=== PATIENT | male | born 1980 | race Caucasian/White ===

== ENCOUNTER 2020-06-11 15:35 | Emergency (ER) | payer BC ==
[~2020-06-11] VITALS: Ht 175.3 cm; Wt 137.6 kg
[~2020-06-11 15:35] MED LIST: HYDR1TAB PO; NO HOME MEDS; PENI500T2 PO
[2020-06-11 17:05] LABS: BASOPHILS # (AUTO) 0.1 X10'3 (0-0.2); BASOPHILS % (AUTO) 0.8 % (0-1); EOSINOPHILS # (AUTO) 0.1 X10'3 (0-0.9); EOSINOPHILS % (AUTO) 1.2 % (0-6); HEMATOCRIT 43.5 % (42.0-52.0); HEMOGLOBIN 14.6 g/dl (14.0-17.9); LYMPHOCYTES % (AUTO) 26.8 % (21-51); MEAN CORPUSCULAR HEMOGLOBIN 29.3 PG (27.0-31.0); MEAN CORPUSCULAR HGB CONC 33.6 g/dL (33.0-36.5); MEAN CORPUSCULAR VOLUME 87.2 FL (78-98); MEAN PLATELET VOLUME 7.5 FL (7.4-10.4); MONOCYTES # (AUTO) 0.7 X10'3 (0-0.9); MONOCYTES % (AUTO) 6.4 % (2-12); NEUTROPHILS # (AUTO) 7.3 X10'3 (1.8-7.7); NEUTROPHILS % (AUTO) 64.8 % (42-75); PLATELET COUNT 268 X10'3 (140-440); RED BLOOD COUNT 4.99 X10'6 (4.70-6.10); RED CELL DISTRIBUTION WIDTH 13.6 % (11.5-14.5); WHITE BLOOD COUNT 11.2 X10'3 (4.5-11.0)
[2020-06-11 17:10] LABS: ALANINE AMINOTRANSFERASE 44 U/L (12-78); ALBUMIN 3.7 G/DL (3.4-5.0); ALBUMIN/GLOBULIN RATIO 0.9 (1.1-1.5); ALKALINE PHOSPHATASE 73 IU/L (46-116); ANION GAP 11 (8-16); ASPARTATE AMINO TRANSFERASE 26 U/L (10-37); BILIRUBIN,TOTAL 0.6 MG/DL (0.1-1.0); BLOOD UREA NITROGEN 14 MG/DL (7-18); BUN/CREATININE RATIO 14.6 (5.4-32.0); CALCIUM 8.6 MG/DL (8.5-10.1); CHLORIDE 105 MMOL/L (99-107); CREATININE 0.96 MG/DL (0.60-1.10); GLUCOSE 96 MG/DL (70-104); SODIUM 141 MMOL/L (135-145); TOTAL CARBON DIOXIDE 24.8 MMOL/L (24-32); TOTAL PROTEIN 7.7 G/DL (6.4-8.2); eGFR 88 ML/MIN
[2020-06-11 17:26] VITALS: BP 151/94
[2020-06-11] MEDS ORDERED: MECL-231 PO (17:53)
== END 2020-06-11 17:58 | disposition home or self-care (01) ==
LOC: ER 15:35
DX: R42 Dizziness and giddiness (principal); R06.02 Shortness of breath; F17.200 Nicotine dependence, unspecified, uncomplicated; Z90.89 Acquired absence of other organs; Z72.89 Other problems related to lifestyle; Z79.2 Long term (current) use of antibiotics; Z79.899 Other long term (current) drug therapy
CPT/HCPCS: 36415; 71045; 80053; 83880; 84484; 85025; 93005; 99285

== ENCOUNTER 2021-05-28 22:59 | Emergency (ER) | payer BC ==
[~2021-05-28] VITALS: Ht 177.8 cm; Wt 118.2 kg
[~2021-05-28 22:59] MED LIST changes: +MECL-231 PO
[2021-05-28 23:10] VITALS: BP 134/87
== END 2021-05-29 00:41 | disposition left against medical advice (07) ==
LOC: ER 22:59
DX: R07.9 Chest pain, unspecified (principal); Z53.21 Procedure and treatment not carried out due to patient leaving prior to being seen by health care provider
CPT/HCPCS: 71045; 93005; 99283

== ENCOUNTER 2024-05-07 00:18 | Inpatient (IN) | payer BC, OTHER ==
[~2024-05-07] VITALS: Ht 177.8 cm; Wt 140.9 kg
[2024-05-07] MEDS: ondansetron 4mg rapidly disintigrating tab PO ONE (00:58)
[2024-05-07] MEDS: LIDOcaine 2% Viscous 15ml cup MM ONE (00:58)
[2024-05-07] MEDS: mag hydrox/Alum hydrox/simeth 30ml oral suspension PO ONE (00:58)
[2024-05-07 01:00] LABS: BASOPHILS % (AUTO) 0.3 % (0-1); EOSINOPHILS # (AUTO) 0.2 X10'3 (0-0.9); EOSINOPHILS % (AUTO) 1.7 % (0-6); HEMATOCRIT 45.1 % (42.0-52.0); HEMOGLOBIN 15.2 g/dl (14.0-17.9); LYMPHOCYTES # (AUTO) 2.9 X10'3 (1.1-4.8); LYMPHOCYTES % (AUTO) 23.7 % (21-51); MEAN CORPUSCULAR HGB CONC 33.7 g/dL (33.0-36.5); MEAN CORPUSCULAR VOLUME 86.1 FL (78-98); MEAN PLATELET VOLUME 7.6 FL (7.4-10.4); MONOCYTES # (AUTO) 0.8 X10'3 (0-0.9); NEUTROPHILS # (AUTO) 8.5 X10'3 (1.8-7.7); NEUTROPHILS % (AUTO) 68.3 % (42-75); PLATELET COUNT 258 X10'3 (140-440); RED BLOOD COUNT 5.23 X10'6 (4.70-6.10); RED CELL DISTRIBUTION WIDTH 13.8 % (11.5-14.5); WHITE BLOOD COUNT 12.4 X10'3 (4.5-11.0)
[2024-05-07 01:07] LABS: ALANINE AMINOTRANSFERASE 47 U/L (12-78); ALBUMIN 3.6 G/DL (3.4-5.0); ALBUMIN/GLOBULIN RATIO 0.9 (1.1-1.5); ALKALINE PHOSPHATASE 85 IU/L (46-116); ANION GAP 5 (8-16); ASPARTATE AMINO TRANSFERASE 20 U/L (10-37); BILIRUBIN,TOTAL 0.6 MG/DL (0.1-1.0); BLOOD UREA NITROGEN 13 MG/DL (7-18); BUN/CREATININE RATIO 15.5 (10.0-20.0); CALCIUM 8.6 MG/DL (8.5-10.1); CHLORIDE 105 MMOL/L (99-107); CREATININE 0.84 MG/DL (0.60-1.10); GLUCOSE 102 MG/DL (70-104); POTASSIUM 3.9 MMOL/L (3.5-5.1); SODIUM 139 MMOL/L (135-145); TOTAL CARBON DIOXIDE 29.3 MMOL/L (24-32); TOTAL PROTEIN 7.7 G/DL (6.4-8.2); eCRCL 118 ML/MIN; eGFR > 90 ML/MIN
[2024-05-07 01:10] LABS: LIPASE 33 U/L (16-77)
[2024-05-07] MEDS ORDERED: iohexol 300mg/ml 100ml inj. ONE (01:29)
[2024-05-07] MEDS: acetaminophen 325mg tablet PO ONE (01:34)
[2024-05-07] MEDS: ketorolac trometh 15mg/ml vial 15 MG/ML ML IV ONE (01:34)
[2024-05-07 02:47] LABS: BILIRUBIN,URINE NEGATIVE (Neg); CLARITY,URINE CLEAR (Clear); COLOR,URINE YELLOW (Yellow); GLUCOSE, URINE NEGATIVE (Neg); KETONES,URINE TRACE mg/dl (Neg); LEUKOCYTE ESTERASE ,URINE NEGATIVE (Neg); NITRITES, URINE NEGATIVE (Neg); OCCULT BLOOD,URINE NEGATIVE (Neg); PH,URINE 5.5 (4.8-8.0); PROTEIN,URINE NEGATIVE (Neg)
[2024-05-07 02:55] LABS: UA COLLECTION TYPE CLN CATCH MIDSTREAM
[2024-05-07] MEDS: normal saline 1000ML IV soln IVB ONE (03:41)
[2024-05-07] MEDS ORDERED: ERGO500093 PO (06:18)
[2024-05-07] MEDS ORDERED: potassium Cl 40MEQ/1/2NS 520ml 520 ML IV PRN ×2 (07:10→08:35)
[2024-05-07] MEDS ORDERED: ondansetron/PF 4mg/2ml inj IV PRN (07:10)
[2024-05-07] MEDS ORDERED: magnesium sulf-water 4G/100mL 100 ML IV PRN ×2 (07:10→08:35)
[2024-05-07] MEDS ORDERED: acetaminophen 325mg tablet PO PRN (07:10)
[2024-05-07] MEDS ORDERED: magnesium sulf-water 2g/50mL 50 ML IV PRN ×2 (07:10→08:35)
[2024-05-07] MEDS ORDERED: mag hydrox/Alum hydrox/simeth 30ml oral suspension PO PRN (07:10)
[2024-05-07] MEDS: normal saline 1000ml 1,000 ML IV SCH (07:26)
[2024-05-07] MEDS: docusate sod 100mg capsule PO SCH (08:00)
[2024-05-07] MEDS ORDERED: morphine 2 MG/ML inj. syringe IV PRN (08:35)
[2024-05-07] MEDS ORDERED: potassium Cl 20 mEq SR tablet PO PRN ×2 (08:35)
[2024-05-07] MEDS ORDERED: morphine 4 MG/ML inj SYRINge IV PRN (08:35)
[2024-05-07] MEDS ORDERED: hydrALAZINE 20mg/ml inj. IV PRN (11:50)
[2024-05-07 11:52] VITALS: RESP 16
[2024-05-07 11:58] VITALS: BP 116/69; PULSE 72; RESP 16; TEMP 98.6; O2SAT 96
[2024-05-07] MEDS: heparin, porcine 5000 units/ml vial SQ ONE (13:00)
[2024-05-07 18:00] VITALS: BP 118/67; PULSE 68; RESP 14; TEMP 98; O2SAT 98
[2024-05-07 20:00] VITALS: RESP 16
[2024-05-07] MEDS: K and/or MAG REPLACEMENT MC SCH (21:50)
[2024-05-07 22:00] VITALS: BP 129/63; PULSE 54; RESP 19; TEMP 98.5; O2SAT 98
[2024-05-07] MEDS: heparin, porcine 5000 units/ml vial SQ SCH (22:06)
[2024-05-08 05:12] LABS: BASOPHILS % (AUTO) 0.4 % (0-1); EOSINOPHILS # (AUTO) 0.2 X10'3 (0-0.9); EOSINOPHILS % (AUTO) 2.8 % (0-6); HEMATOCRIT 38.3 % (42.0-52.0); HEMOGLOBIN 13.1 g/dl (14.0-17.9); LYMPHOCYTES # (AUTO) 2.3 X10'3 (1.1-4.8); LYMPHOCYTES % (AUTO) 32.6 % (21-51); MEAN CORPUSCULAR HEMOGLOBIN 29.3 PG (27.0-31.0); MEAN CORPUSCULAR HGB CONC 34.1 g/dL (33.0-36.5); MEAN CORPUSCULAR VOLUME 85.9 FL (78-98); MEAN PLATELET VOLUME 7.2 FL (7.4-10.4); MONOCYTES # (AUTO) 0.5 X10'3 (0-0.9); MONOCYTES % (AUTO) 6.5 % (2-12); NEUTROPHILS # (AUTO) 4.1 X10'3 (1.8-7.7); NEUTROPHILS % (AUTO) 57.7 % (42-75); PLATELET COUNT 201 X10'3 (140-440); RED BLOOD COUNT 4.46 X10'6 (4.70-6.10); RED CELL DISTRIBUTION WIDTH 13.9 % (11.5-14.5)
[2024-05-08 05:30] LABS: ALANINE AMINOTRANSFERASE 32 U/L (12-78); ALBUMIN 2.8 G/DL (3.4-5.0); ALBUMIN/GLOBULIN RATIO 0.8 (1.1-1.5); ALKALINE PHOSPHATASE 65 IU/L (46-116); ANION GAP 4 (8-16); ASPARTATE AMINO TRANSFERASE 19 U/L (10-37); BILIRUBIN,TOTAL 0.8 MG/DL (0.1-1.0); BLOOD UREA NITROGEN 5 MG/DL (7-18); BUN/CREATININE RATIO 7.1 (10.0-20.0); CHLORIDE 108 MMOL/L (99-107); GLUCOSE 95 MG/DL (70-104); POTASSIUM 3.9 MMOL/L (3.5-5.1); SODIUM 141 MMOL/L (135-145); TOTAL CARBON DIOXIDE 28.8 MMOL/L (24-32); TOTAL PROTEIN 6.2 G/DL (6.4-8.2); eCRCL 142 ML/MIN; eGFR > 90 ML/MIN
[2024-05-08 06:00] VITALS: BP 108/69; PULSE 66; RESP 19; TEMP 97.8; O2SAT 95
[2024-05-08] MEDS ORDERED: mineral oil 133ml enema RC PRN (07:55)
[2024-05-08 08:00] VITALS: RESP 18; O2SAT 99
[2024-05-08 10:00] VITALS: BP 135/80; PULSE 85; RESP 18; TEMP 98.6; O2SAT 95
== END 2024-05-08 17:55 | disposition home or self-care (01) | DRG 389 ==
LOC: ER 00:19 → ED HOLD 07:14 → SUR 3N 11:03
PROVIDERS: ADMIT Internal Medicine; ATTEND Nurse Practitioner Family
PROC: 0D9670Z Drainage of Stomach with Drainage Device, Via Natural or Artificial Opening (ICD-10-PCS; principal; 2024-05-07)
PROC: BW211ZZ Computerized Tomography (CT Scan) of Abdomen and Pelvis using Low Osmolar Contrast (ICD-10-PCS; 2024-05-07)
DX: K56.600 Partial intestinal obstruction, unspecified as to cause (principal); Z68.41 Body mass index [BMI] 40.0-44.9, adult; I10 Essential (primary) hypertension; K44.9 Diaphragmatic hernia without obstruction or gangrene; E66.813 Obesity, class 3; D72.829 Elevated white blood cell count, unspecified; Z90.49 Acquired absence of other specified parts of digestive tract; Z87.891 Personal history of nicotine dependence
CPT/HCPCS: 36415; 43762; 74177; 80053; 81003; 82948; 83690; 83735; 84145; 84484; 85025; 87081; 96361; 96372; 96374; 99285; G0378; J1644; J1885; J7030; Q9967